=== PATIENT | female | born 1995 | race Two or more races ===

== ENCOUNTER → 2017-06-21 | Outpatient (CLI) | payer OTHER ==
[~2017-06-21] MED LIST: NONE PER PT
== END ==
LOC: STAR 08:24
PROVIDERS: ATTEND Surgery
DX: Z02.9 Encounter for administrative examinations, unspecified (principal)

== ENCOUNTER 2017-06-28 10:38 | Day surgery (SDC) | payer OTHER ==
[~2017-06-28] VITALS: Ht 162.6 cm; Wt 60.5 kg
[2017-06-28 10:51] VITALS: BP 104/72
[2017-06-28] MEDS ORDERED: LACTATED RINGERS 1,000 ML IV SCH (10:54)
[2017-06-28] MEDS ORDERED: LIDOCAINE 1%, 2ML ONE (10:57)
[2017-06-28] MEDS ORDERED: LIDOCAINE 1%, 2ML SQ PRN (11:00)
[2017-06-28] MEDS ORDERED: FENTANYL PF 100 MCG/2ML ONE ×2 (11:49)
[2017-06-28] MEDS ORDERED: MIDAZOLAM 1 MG/ML, 2ML ONE ×2 (11:49)
[2017-06-28] MEDS ORDERED: BUPIVACAINE/PF 0.5% ONE (12:30)
[2017-06-28] MEDS ORDERED: EPINEPHRINE 1 MG/ML, 1ML ONE (12:30)
[2017-06-28] MEDS ORDERED: LIDOCAINE-MPF 2% ,5ML ONE (12:34)
[2017-06-28] MEDS ORDERED: CEFAZOLIN 1,000 MG ONE ×2 (12:34)
[2017-06-28] MEDS ORDERED: PROPOFOL 10 MG/ML, 20ML ONE (12:34)
[2017-06-28] MEDS ORDERED: ONDANSETRON 2MG/ML, 2ML ONE ×2 (12:36)
[2017-06-28] MEDS ORDERED: KETOROLAC 30 MG/1 ML ONE (12:36)
[2017-06-28] MEDS ORDERED: DEXAMETHASONE 4 MG/ML, 1ML ONE ×2 (12:36)
[2017-06-28] MEDS ORDERED: BUPIVACAINE/PF 0.5% INFIL ONE (12:56)
[2017-06-28] MEDS ORDERED: EPINEPHRINE 1 MG/ML, 1ML INFIL ONE (12:56)
[2017-06-28] MEDS ORDERED: OXYcodone 5 MG/5 ML ORAL.SOL UDC ONE (13:25)
[2017-06-28] MEDS ORDERED: ACETAMINOPHEN 325 MG TABLET ONE (13:25)
[2017-06-28] MEDS ORDERED: FENTANYL PF 100 MCG/2ML IV PRN (13:30)
[2017-06-28] MEDS ORDERED: ONDANSETRON 2MG/ML, 2ML IVPush PRN (13:30)
[2017-06-28] MEDS ORDERED: OXYcodone 5 MG/5 ML ORAL.SOL UDC PO PRN (13:30)
[2017-06-28] MEDS ORDERED: ACETAMINOPHEN 325 MG TABLET PO PRN (13:30)
[2017-06-28] MEDS ORDERED: PROMETHAZINE 25 MG/ML, 1ML IV PRN (13:30)
[2017-06-28] MEDS ORDERED: MEPERIDINE/PF 25MG/0.5ML IVPush PRN (13:30)
[2017-06-28] MEDS ORDERED: HYDROmorphone 1 MG/ML, 1ML IV PRN (13:30)
== END 2017-06-28 15:10 ==
LOC: OUT 10:38
PROVIDERS: ATTEND Surgery
DX: N63.0 Unspecified lump in unspecified breast (principal)
CPT/HCPCS: 19120; 88305; J0171; J0690; J1100; J1885; J2250; J2405; J2704; J3010; J3490; J7120

== ENCOUNTER 2019-12-07 22:10 | Emergency (ER) | payer OTHER ==
[~2019-12-07] VITALS: Ht 162.6 cm; Wt 68.0 kg
[2019-12-07 22:15] VITALS: BP 134/65
--- NOTE | 2019-12-07 22:35 | NUR ---
first contact with pt. Pt states a needle broke in their right arm while receiving a testosterone injection. Pt has a lump at the injection site in triage. pt's aox4. resps even and unlabored.
--- NOTE | 2019-12-08 00:12 | NUR ---
Patient given discharge instructions and they have confirmed that they understand the instructions. Patient ambulatory with steady gait.
== END 2019-12-08 00:13 | disposition home or self-care (01) ==
LOC: ED 22:38
DX: L03.113 Cellulitis of right upper limb (principal); M79.601 Pain in right arm
CPT/HCPCS: 99283

== ENCOUNTER → 2020-04-22 | Outpatient (CLI) | payer OTHER | END | disposition home or self-care (01) | LOC: CFH 09:53 | PROVIDERS: ATTEND Nurse Practitioner Family | DX: N60.81 Other benign mammary dysplasias of right breast (principal); N63.10 Unspecified lump in the right breast, unspecified quadrant | CPT/HCPCS: 76642 ==

== ENCOUNTER → 2020-10-08 | Outpatient (CLI) | payer OTHER ==
[~2020-10-08] MED LIST changes: +Testosterone PO
[2020-10-08 16:15] LABS: BASOPHILS % (AUTO) 1 % (0-1); EOSINOPHILS % (AUTO) 3 % (1-7); LYMPHOCYTES % (AUTO) 31 % (22-44); MEAN CORPUSCULAR HEMOGLOBIN 31.2 pg (27.5-34.5); MEAN CORPUSCULAR HGB CONC 33.9 g/dL (33.2-36.2); MEAN PLATELET VOLUME 8.8 fL (7.4-10.4); MONOCYTES % (AUTO) 7 % (2-9); NEUTROPHILS % (AUTO) 58 % (42-75); PLATELET COUNT 373 x10^3/uL (130-400); RED BLOOD COUNT 5.32 x10^6/uL (4.38-5.82); RED CELL DISTRIBUTION WIDTH 13.5 % (9.4-14.8)
[2020-10-08 16:16] LABS: MD NO
== END | disposition home or self-care (01) ==
LOC: STAR 14:59
PROVIDERS: ATTEND Plastic Surgery
DX: Z01.812 Encounter for preprocedural laboratory examination (principal); Z20.822 Contact with and (suspected) exposure to COVID-19; F64.1 Dual role transvestism; Z87.890 Personal history of sex reassignment
CPT/HCPCS: 84703; 85025; 87635

== ENCOUNTER 2020-10-14 11:09 | Day surgery (SDC) | payer OTHER ==
[~2020-10-14] VITALS: Ht 162.6 cm; Wt 64.0 kg
[2020-10-14 12:30] VITALS: BP 114/77
[2020-10-14] MEDS ORDERED: CHLORHEXIDINE 15 ML UDC MM ONE (12:30)
[2020-10-14] MEDS ORDERED: LACTATED RINGERS 1,000 ML IV SCH (12:30)
[2020-10-14] MEDS ORDERED: EPINEPHRINE 1 MG/ML, 1ML ONE ×2 (12:35→13:28)
[2020-10-14] MEDS ORDERED: CEFAZOLIN 1,000 MG ONE ×2 (12:35→15:31)
[2020-10-14] MEDS ORDERED: BUPIVACAINE/PF 0.5% ONE (12:35)
[2020-10-14] MEDS ORDERED: BACITRACIN 50,000 UNIT ONE (12:35)
[2020-10-14] MEDS ORDERED: GENTAMICIN 80 MG/2 ML ONE (12:35)
[2020-10-14] MEDS ORDERED: MIDAZOLAM 1 MG/ML, 2ML ONE (12:45)
[2020-10-14] MEDS ORDERED: FENTANYL PF 250 MCG/5ML ONE (12:45)
[2020-10-14] MEDS ORDERED: LIDOCAINE GEL 2%, 5ML ONE (12:48)
[2020-10-14] MEDS ORDERED: FENTANYL PF 100 MCG/2ML IV PRN (13:00)
[2020-10-14] MEDS ORDERED: PROMETHAZINE 25 MG/ML, 1ML IVPush PRN (13:00)
[2020-10-14] MEDS ORDERED: DIPHENHYDRAMINE 50 MG/ML, 1ML IVPush PRN (13:00)
[2020-10-14] MEDS ORDERED: LABETALOL 5MG/ML, 20ML IV PRN (13:00)
[2020-10-14] MEDS ORDERED: hydrALAzine 20 MG/ML, 1ML IV PRN (13:00)
[2020-10-14] MEDS ORDERED: MEPERIDINE/PF 25MG/0.5ML IVPush PRN (13:00)
[2020-10-14] MEDS ORDERED: HALOPERIDOL 5 MG/ML IV PRN (13:00)
[2020-10-14] MEDS ORDERED: HYDROmorphone 1 MG/ML, 1ML INJ IVPush PRN (13:00)
[2020-10-14] MEDS ORDERED: HYDROcodone/APAP 7.5-325MG/15ML UDC PO PRN (13:00)
[2020-10-14] MEDS ORDERED: SODIUM BICARBONATE 1 MEQ/ML, 50ML VIAL ONE (13:28)
[2020-10-14] MEDS ORDERED: LIDOCAINE-MPF 2% ,5ML ONE (13:28)
[2020-10-14] MEDS ORDERED: DEXAMETHASONE 4 MG/ML, 1ML ONE (13:34)
[2020-10-14] MEDS ORDERED: ROCURONIUM 10MG/ML,5ML ONE (15:31)
[2020-10-14] MEDS ORDERED: ONDANSETRON 2MG/ML, 2ML ONE (15:31)
[2020-10-14] MEDS ORDERED: NEOSTIGMINE 1 MG/ML, 10ML ONE (15:31)
[2020-10-14] MEDS ORDERED: SUCCINYLCHOLINE 20 MG/ML, 10ML ONE (15:31)
[2020-10-14] MEDS ORDERED: PROPOFOL 10 MG/ML, 20ML ONE (15:31)
[2020-10-14] MEDS ORDERED: GLYCOPYRROLATE 0.2MG/1ML, 5ML ONE (15:31)
[2020-10-14] MEDS ORDERED: ACETAMINOPHEN 650 MG/20.3 ML UDC ONE (15:47)
[2020-10-14] MEDS ORDERED: FENTANYL PF 100 MCG/2ML ONE (15:47)
[2020-10-14] MEDS ORDERED: HYDROcodone/APAP 7.5-325MG/15ML UDC ONE (15:48)
[2020-10-14] MEDS ORDERED: ACETAMINOPHEN 650 MG/20.3 ML UDC PO PRN (16:00)
== END 2020-10-14 18:20 | disposition home or self-care (01) ==
LOC: OUT 11:09 → EDSEX 11:09 → OUT 18:20
PROVIDERS: ATTEND Plastic Surgery
DX: F64.8 Other gender identity disorders (principal); Z79.891 Long term (current) use of opiate analgesic; Z79.899 Other long term (current) drug therapy; Z87.890 Personal history of sex reassignment; Z83.3 Family history of diabetes mellitus
CPT/HCPCS: 19318; 36415; 84703; 88305; C1729; J0171; J0330; J0690; J1100; J1170; J2250; J2405; J2704; J2710; J3010; J7120; J1580